=== PATIENT | male | born 2000 | race Caucasian/White ===

== ENCOUNTER 2025-06-17 22:14 | Emergency (ER) | payer SELFPAY ==
[~2025-06-17] VITALS: Ht 177.8 cm; Wt 101.7 kg
[2025-06-17 22:16] VITALS: BP 119/70; TEMP 98.2; O2SAT 98
== END 2025-06-18 00:44 | disposition left against medical advice (07) ==
LOC: M ED 22:14
DX: Z53.21 Procedure and treatment not carried out due to patient leaving prior to being seen by health care provider (principal)